=== PATIENT | female | born 1955 | race Caucasian/White ===

== ENCOUNTER 2016-07-29 08:37 | Inpatient (IN) | payer BC ==
--- NOTE | 2016-07-01 15:33 | History and Physical ---
History & Physical HISTORY OF PRESENT ILLNESS: The patient presents as a very pleasant 60-year-old female with severe DJD about her right knee. She presents for a right total knee arthroplasty after failing attempts at conservative management including physical therapy, anti-inflammatories, relative rest, activity modification. She recently had her left TKA done on 05/20/16. She had previous corticosteroid injections, viscosupplementations. Risks and complications of total knee arthroplasty have been discussed with patient. The patient presents for Right total knee arthroplasty. PAST MEDICAL HISTORY: Significant for hypertension, hypercholesterolemia, sleep apnea, using CPAP machine, anxiety, type 2 diabetes, history of kidney stones. ALLERGIES: MACROBID. CURRENT MEDICATIONS: Atorvastatin 40 mg daily, metformin 1000 mg b.i.d., Trulicity 0.75 mg daily, , benazepril 40 mg daily, Paxil 40 mg daily, allopurinol 300 mg daily, vitamin D3. PAST SURGICAL HISTORY: Significant for tonsillectomy sinus surgery lithotripsy Left Total Knee replacement FAMILY HISTORY: Otherwise unremarkable and noncontributory. SOCIAL HISTORY: The patient denies a history of smoking, tobacco use or alcohol consumption. REVIEW OF SYSTEMS: Otherwise unremarkable and noncontributory. See history of present illness for pertinent positives. PHYSICAL EXAMINATION: GENERAL: Reveals a very pleasant 60-year-old female in no acute distress, alert and oriented x3. HEENT: Otherwise atraumatic, normocephalic. HEART: Regular rate and rhythm, pulse 76 bpm. No murmurs are noted. LUNGS: Clear. No rales, rhonchi, or wheezes noted. ABDOMEN: Soft, nontender, nondistended. Bowel sounds are present MUSCULOSKELETAL EXAMINATION: ROM 0/3/110, tender medial and lateral compartments, ligamentously stable, no erythema or warmth. mild effusion. pain with flexion circumduction X-RAYS: She has a varus alignment, subchondral sclerosis, osteophytes noted to Right knee. also s/p Left Total Knee Replacement. IMPRESSION: Right knee degenerative joint disease. PLAN: Total knee arthroplasty, postoperative pain management, DVT prophylaxis. ASA 81mg po bid x 1 month.
[2016-07-16 15:50] VITALS: BMI 42.0
[~2016-07-29] VITALS: Ht 160 cm; Wt 109.1 kg
[2016-07-29] VITALS (9 sets, daily range): BP systolic 111–150; BP diastolic 54–82; PULSE 73–98; TEMP 36.5–36.9; O2SAT 93–100; Ht 160 cm; Wt 109.1 kg
[2016-07-29] MEDS: TRANEXAMIC ACID INJ 1,000 MG in SODIUM CHLORIDE 0.9% 100ML 100 ML IV SCH ×2 (06:30→11:17)
--- NOTE | 2016-07-29 08:12 | History & Physical Bridge Note ---
H&P Re-Evaluation Bridge Note: I have examined the patient, reviewed the History & Physical and in the interval since the performance of the History & Physical I have noted the following changes of clinical significance: No changes noted
[~2016-07-29 08:37] MED LIST: ACETAMINOPHEN 500 MG TAB PO SCH; ACT30 PO; ALLO300T2 PO; AMLO-110 PO; ATOR-24 PO; BENA1TAB19 PO; BUPIVACAINE 0.5 % 5 MG/1 ML PF 10ML VIAL ONE; CEFAZOLIN 2000 MG/60 ML D5W 60 ML IV SCH; CeleBREX 200 MG CAP PO SCH; DEXAMETHASONE 4 MG TAB PO SCH; EXEN1INJ3 INJ; FAMOTIDINE 20 MG TAB PO SCH; GABAPENTIN 300 MG CAP PO SCH; LACTATED RINGER'S 1000ML IV SCH; METF-384 PO; METOCLOPRAMIDE HCL 10 MG TAB PO SCH; PARO1TAB29 PO; ROPIVACAINE 5MG/ML 30 ML 150 MG, BUPIVACAINE/EPINEPHR 0.5% MPF 30 ML, KETOROLAC TROMETH... INFIL SCH
[2016-07-29] MEDS ORDERED: ATROPINE SULFATE 0.1 MG/ML 5ML SYR IV PRN (09:45)
[2016-07-29] MEDS ORDERED: EpHEDrine SULFATE INJ 50 MG/ML AMP IV PRN (09:45)
[2016-07-29] MEDS ORDERED: ONDANSETRON INJ 2 MG/ML 2 ML VIAL IV PRN ×2 (09:45→13:30)
[2016-07-29] MEDS ORDERED: FENTANYL CITRATE INJ 50 MCG/1 ML 2 ML VIAL IV PRN (09:45)
[2016-07-29] MEDS ORDERED: SCOPOLAMINE 1.5 MG TDSY TD ONE ×2 (10:43→10:45)
[2016-07-29] MEDS ORDERED: ONDANSETRON INJ 2 MG/ML 2 ML VIAL ONE (10:52)
[2016-07-29] MEDS ORDERED: MIDAZOLAM HCL 1 MG/ML 2ML VIAL ONE ×3 (10:52→12:15)
[2016-07-29] MEDS ORDERED: FENTANYL CITRATE INJ 50 MCG/1 ML 2 ML VIAL ONE (10:52)
[2016-07-29] MEDS ORDERED: LIDOCAINE HCL 2% 2 ML VIAL (20MG/ML) ONE (10:52)
[2016-07-29] MEDS ORDERED: PROPOFOL IV EMULSION 10 MG/ML 20 ML VIAL IV ONE ×2 (10:52→12:47)
[2016-07-29] MEDS ORDERED: DEXAMETHASONE SOD INJ 4 MG/ML VIAL ONE (10:52)
[2016-07-29] MEDS ORDERED: ORTHO JOINT ANESTHETIC ONE (11:20)
[2016-07-29] MEDS ORDERED: POVIDONE-IODINE OP SOLN 30 ML BTL TOP ONE (12:28)
[2016-07-29] MEDS ORDERED: BACITRACIN 50000 UNIT VIAL IR ONE (12:28)
--- NOTE | 2016-07-29 12:42 | [facility] Post Operative Brief Note ---
Immediate Operative Summary Operative Date Jul 29, 2016. Pre-Operative Diagnosis Right Knee Degenerative Joint Disease Post-Operative Diagnosis Right Knee Degenerative Joint Disease Procedure(s) Performed Right Total Knee Arthroplasty Surgeon Dr. Cory Thomas First Aid Nurse Surgeon(s) Jarrett Thompson PA-C Estimated Blood Loss 5ml Findings severe djd rt knee Specimens A. Right Knee Bone and Tissue Complication(s) None Disposition Recovery Room / PACU
--- NOTE | 2016-07-29 13:00 | HISTORY & PHYSICAL EXAMINATION ---
DATE OF ADMISSION: 07/29/2016 PREOPERATIVE DIAGNOSIS: Severe end-stage degenerative joint disease, right knee. POSTOPERATIVE DIAGNOSIS: Severe end-stage degenerative joint disease, right knee. PROCEDURE: Right total knee arthroplasty utilizing Marrero \T\ Nephew Journey II patient without block knee. Size 3 femur, 2 tibia, 13 spacer, 29 oval patella. SURGEON: Dr. Thomas. PROJECT RESERVOIR ENGINEER: LEELA Nguyen. Please note, Donna was necessary for prepping, draping, retraction, and wound closure of deep fascia, subcutaneous and skin and was necessary for the case. ANESTHESIA: Femoral nerve block, spinal. ESTIMATED BLOOD LOSS: 5 mL. COMPLICATIONS: None. TOURNIQUET TIME: 45 minutes. HISTORY OF PRESENT ILLNESS: The patient presents as a very pleasant 60-year-old white female being seen and evaluated with complaints of severe end-stage DJD about her right knee. She presents for a right total knee arthroplasty. PROCEDURE: The patient was properly prepped and draped in supine position for total knee arthroplasty after identifying the appropriate surgical site. An anterior midline incision was made through the subcutaneous tissues down to the region of the extensor mechanism. A medial parapatellar incision was subsequently made. Meticulous hemostasis was obtained and performed at all times. The patella having been subluxed lateralward, medial and lateral meniscal remnants were excised. The patellar cut was then initially made and was sized to the appropriate size. After subluxing the tibia forward the appropriate meniscal fragments having been removed the distal femur was then cut first utilizing a Marrero \T\ Nephew Journey II without block. The distal femoral cuts and chamfer cuts were all made under direct visualization and the proximal tibial osteotomy cut was also made utilizing Marrero \T\ Nephew Journey II without block and checked with an extramedullary guide. The appropriate trial components on the femur and tibia were placed. Appropriate trial spacers were used to check flexion and extension gaps. With flexion and extension gaps being equal, the components were then subsequently after thorough irrigation and debridement lavage components were then subsequently cemented in the following order: 3 femur, 2 tibia, 13 spacer and 29 oval patella. Exparel was used for intraoperative anesthesia, the medial parapatellar incision was closed utilizing #1 Vicryl, subQ was closed with 2-0 Vicryl, skin was closed with skin clips. A sterile compression dressing was placed. The patient was taken to recovery room in stable condition. Due to the complex nature of the procedure, the entire surgery was performed with the operational assistance of Jarrett Thompson PA-C. The anesthesiologist assistant, under direct supervision, was involved in the actual performance of all aspects of the surgical procedure including hemostasis, tissue retraction and incision, instrument management, patient positioning, and wound closure.
[2016-07-29] MEDS ORDERED: BISACODYL 10 MG SUPP PR PRN (13:30)
[2016-07-29] MEDS ORDERED: MAGNESIUM HYDROXIDE SUSP 30 ML UDC PO PRN (13:30)
[2016-07-29] MEDS ORDERED: SOD PHOSPHATE/SOD BIPHOSPHATE ENEMA 132 ML BTL PR PRN (13:30)
[2016-07-29] MEDS ORDERED: MoRPHine SULFATE 2 MG/ML CARP IV PRN (13:30)
[2016-07-29] MEDS ORDERED: ALUMINUM/MAGNESIUM/SIMETH (MAALOX MAX) 30 ML UDC PO PRN (13:30)
[2016-07-29] MEDS ORDERED: PHARMACY GLYCEMIC MGMT CONSULT PRN (13:35)
[2016-07-29] MEDS ORDERED: MoRPHine SULFATE 10 MG/ML CARP/VIAL IV PRN (13:45)
[2016-07-29] MEDS ORDERED: MoRPHine SULFATE 4 MG/ML 1 ML CARP\\VIAL IV PRN (13:45)
--- NOTE | 2016-07-29 14:08 | DIAGNOSTIC IMAGING REPORT ---
RIGHT KNEE 1 OR 2 VIEWS ROUTINE CLINICAL HISTORY: Postop examination COMPARISON: None. DISCUSSION: There are postsurgical changes of a total right knee arthroplasty and patellar resurfacing. The femoral and tibial components appear well seated. Overlying skin delvin and surgical drains are evident. There is air within the soft tissues consistent with recent surgery. There is no evidence for soft tissue swelling. IMPRESSION: Postsurgical changes of a total right knee arthroplasty. Electronically signed by: Adryan Mathews M.D. 07/29/2016 2:06 PM Dictated Date/Time: 07/29/2016 2:06 PM
[2016-07-29] MEDS ORDERED: GLUCAGON FOR INJ 1 MG VIAL SQ PRN (15:15)
[2016-07-29] MEDS ORDERED: DEXTROSE 50% 50 ML SYR IV PRN (15:15)
[2016-07-29] MEDS ORDERED: GLUCOSE 10 TABS/TUBE PO PRN (15:15)
[2016-07-29] MEDS ORDERED: GLUCOSE 40% GEL 15 GM TUBE PO PRN (15:15)
--- NOTE | 2016-07-29 15:33 | Anesthesiology Progress Note ---
Anesthesia Post Op Note Date & Time Jul 29, 2016 at 15:32 Vital Signs Pain Intensity: 0.0 Vital Signs Past 12 Hours Date Time Temp Pulse Resp B/P Pulse Ox O2 Delivery O2 Flow Rate FiO2 07/29/16 15:25 36.6 86 18 137/70 96 Nasal Cannula 3.0 07/29/16 14:59 36.6 92 20 130/72 93 Nasal Cannula 3.0 07/29/16 14:30 97 Nasal Cannula 2.0 07/29/16 14:30 97 Nasal Cannula 2.0 07/29/16 14:30 36.9 98 18 131/78 97 Nasal Cannula 2.0 07/29/16 14:14 95 21 07/29/16 14:14 95 21 93 07/29/16 14:13 124/72 07/29/16 14:09 95 21 07/29/16 14:09 94 21 93 07/29/16 14:08 127/73 07/29/16 14:04 89 20 07/29/16 14:04 88 20 95 07/29/16 14:03 129/72 07/29/16 13:59 95 19 96 07/29/16 13:59 98 19 07/29/16 13:58 131/75 07/29/16 13:54 95 16 96 07/29/16 13:54 92 16 07/29/16 13:53 131/67 07/29/16 13:49 94 18 07/29/16 13:49 93 18 91 07/29/16 13:48 120/70 07/29/16 13:44 93 20 93 07/29/16 13:44 94 20 07/29/16 13:43 36.8 121/83 07/29/16 13:42 96 19 94 07/29/16 13:42 95 19 07/29/16 13:38 126/71 07/29/16 13:37 93 18 99 07/29/16 13:37 93 18 07/29/16 13:36 93 17 100 07/29/16 13:36 93 17 100 07/29/16 13:36 93 17 07/29/16 13:36 93 17 07/29/16 13:33 126/69 07/29/16 13:33 126/69 07/29/16 13:31 94 21 100 07/29/16 13:31 94 21 100 07/29/16 13:31 93 21 07/29/16 13:31 93 21 07/29/16 13:28 128/69 07/29/16 13:28 128/69 07/29/16 13:26 95 19 100 07/29/16 13:26 95 19 100 07/29/16 13:26 95 19 07/29/16 13:26 95 19 07/29/16 13:23 128/70 07/29/16 13:23 128/70 07/29/16 13:21 102 27 07/29/16 13:21 101 27 98 07/29/16 13:21 36.8 105 17 127/64 99 Mask 10 07/29/16 13:21 102 27 07/29/16 13:21 101 27 98 07/29/16 09:50 36.8 84 22 150/82 100 Room Air Notes Mental Status: alert / awake / arousable, participated in evaluation Pt Amnestic to Procedure: Yes Nausea / Vomiting: adequately controlled Pain: adequately controlled Airway Patency, RR, SpO2: stable & adequate BP & HR: stable & adequate Hydration State: stable & adequate Neuraxial Anesthesia: was administered, sensory block is resolving Anesthetic Complications: no major complications apparent
[2016-07-29] MEDS: SODIUM CHLORIDE 0.9% 1000ML 1,000 ML IV SCH ×2 (15:42→23:37)
[2016-07-29] MEDS ORDERED: NURSING VERBAL MED ORDER ONE (15:45)
[2016-07-29] MEDS: INSULIN ASPART 100 UNITS/ML 3 ML PEN SC SCH ×2 (18:15→21:51)
--- NOTE | 2016-07-29 18:18 | Pharmacy Progress Note ---
Glycemic Control Intl Consult Date of Service Jul 29, 2016. Scope Glycemic Pharmacist consulted by Jarrett Thompson PAC on 07/29/2016 for glycemic control and to write orders per [facility] inpatient glycemic control protocol Objective Weight (Kilograms): 109.090 Accuchecks BSG (last 24hrs): Test 07/29/16 09:27 07/29/16 13:26 Bedside Glucose 110 mg/dl (70-90) 133 mg/dl (70-90) HbA1c 9.0% on 03/28/16 Recent Pertinent Medications Outpatient Anti-diabetic Regimen: * Bydureon 2 mg SQ weekly, metformin 1000 mg BID, Actos 30 mg daily * A1c = 9.0 % 03/28/16 Risk Factors for Insulin Resistance: * Steroids: dexamethasone 8 mg preop, dexamethasone 4 mg intra-op * Infection: * Pressors: * IVF: NSS @ 100 ml/hr * Recent Surgery: TKA * Diet: type 2 diabetes * Mechanical Ventilation: Assessment & Plan ASSESSMENT: * ADA & AACE recommend a goal blood sugar range 140-180 mg/dl for the majority of critically ill & non-critically ill patients. However, more stringent targets may be selected in individual cases. PLAN FOR INPATIENT GLYCEMIC CONTROL: * Correctional Insulin with NOVOLOG / REGULAR per scale ACHS * Goal Range: Low 100 mg/dL - High 140 mg/dL * Correction Factor: 25 mg/dL/unit * Nutritional / Prandial insulin per carb ratio of 1 unit per 9 grams CHO consumed * Please note that the plan above was derived based on current level of insulin resistance and hospital stress. These recommendations are appropriate for inpatient admission only. Plan of care upon discharge will need to be reassessed to avoid potential outpatient hypo/hyperglycemia. Thank you.
[2016-07-29] MEDS: FERROUS GLUCONATE 324 MG TAB PO SCH (18:57)
[2016-07-29] MEDS: CEFAZOLIN IV 2,000 MG in DEXTROSE 5% 50ML 50 ML IV SCH (19:45)
[2016-07-29] MEDS: DOCUSATE SODIUM 100 MG CAP PO SCH (21:49)
[2016-07-29] MEDS: SENNA 8.6 MG TAB PO SCH (21:49)
[2016-07-29] MEDS: OXYCODONE HCL 10 MG TABCR (OXYCONTIN) PO SCH (21:49)
[2016-07-29] MEDS: ASPIRIN 81 MG ECTAB PO SCH (21:49)
[2016-07-29] MEDS: ACETAMINOPHEN 500 MG TAB PO SCH (21:50)
[2016-07-30] VITALS (7 sets, daily range): BP systolic 108–132; BP diastolic 63–67; PULSE 65–94; TEMP 36.2–37.1; O2SAT 96–98
[2016-07-30] MEDS: CEFAZOLIN IV 2,000 MG in DEXTROSE 5% 50ML 50 ML IV SCH (04:16)
[2016-07-30 05:54] LABS: HEMATOCRIT 31.2 % (37-47); MEAN CELL VOLUME 86.2 fL (80-100); MEAN CORPUSCULAR HEMOGLOBIN 28.5 pg (25-34); MEAN PLATELET VOLUME 10.1 fL (7.4-10.4); PLATELET COUNT 218 K/uL (130-400); RED BLOOD COUNT 3.62 M/uL (4.2-5.4); WHITE BLOOD COUNT 7.66 K/uL (4.8-10.8)
[2016-07-30] MEDS: ACETAMINOPHEN 500 MG TAB PO SCH ×3 (05:57→22:13)
[2016-07-30 06:06] LABS: PROTHROMBIN TIME (PATIENT) 10.7 SECONDS (9.0-12.0)
[2016-07-30 06:23] LABS: CALCIUM 8.6 mg/dl (8.5-10.1); CREATININE 0.75 mg/dl (0.60-1.20); POTASSIUM 4.3 mmol/L (3.5-5.1)
--- NOTE | 2016-07-30 07:21 | Orthopedic Progress Note ---
Orthopedic Progress Note Date of Service Jul 30, 2016. Subjective Post OP Day: 1 Reports: feeling well, pain controlled w PO medications, Denies: SOB, calf pain , chest pain, complaints, light headedness, nausea / vomiting Objective calves soft nontender, N/V intact, capillary refill less than 2 sec., dressing C /D/I, A&O x3, toes mobile, hemovac drainage (125cc/8 hours) Date Time Temp Pulse Resp B/P Pulse Ox O2 Delivery O2 Flow Rate FiO2 07/30/16 04:00 36.7 85 18 131/66 96 CPAP 07/29/16 23:15 36.8 73 18 118/65 96 CPAP 07/29/16 19:35 Room Air 07/29/16 19:11 36.5 83 18 111/54 93 Room Air 07/29/16 17:20 36.8 90 18 119/66 95 Room Air 07/29/16 16:55 97 Room Air 07/29/16 16:26 36.7 95 18 132/68 97 Nasal Cannula 3.0 07/29/16 15:25 36.6 86 18 137/70 96 Nasal Cannula 3.0 07/29/16 14:59 36.6 92 20 130/72 93 Nasal Cannula 3.0 07/29/16 14:30 97 Nasal Cannula 2.0 07/29/16 14:30 97 Nasal Cannula 2.0 07/29/16 14:30 36.9 98 18 131/78 97 Nasal Cannula 2.0 07/29/16 14:14 95 21 07/29/16 14:14 95 21 93 07/29/16 14:13 124/72 07/29/16 14:09 95 21 07/29/16 14:09 94 21 93 07/29/16 14:08 127/73 07/29/16 14:04 89 20 07/29/16 14:04 88 20 95 07/29/16 14:03 129/72 07/29/16 13:59 95 19 96 07/29/16 13:59 98 19 07/29/16 13:58 131/75 07/29/16 13:54 95 16 96 07/29/16 13:54 92 16 07/29/16 13:53 131/67 07/29/16 13:49 94 18 07/29/16 13:49 93 18 91 07/29/16 13:48 120/70 07/29/16 13:44 93 20 93 07/29/16 13:44 94 20 07/29/16 13:43 36.8 121/83 07/29/16 13:42 96 19 94 07/29/16 13:42 95 19 07/29/16 13:38 126/71 07/29/16 13:37 93 18 99 07/29/16 13:37 93 18 07/29/16 13:36 93 17 100 07/29/16 13:36 93 17 100 07/29/16 13:36 93 17 07/29/16 13:36 93 17 07/29/16 13:33 126/69 07/29/16 13:33 126/69 07/29/16 13:31 94 21 100 07/29/16 13:31 94 21 100 07/29/16 13:31 93 21 07/29/16 13:31 93 21 07/29/16 13:28 128/69 07/29/16 13:28 128/69 07/29/16 13:26 95 19 100 07/29/16 13:26 95 19 100 07/29/16 13:26 95 19 07/29/16 13:26 95 19 07/29/16 13:23 128/70 07/29/16 13:23 128/70 07/29/16 13:21 102 27 07/29/16 13:21 101 27 98 07/29/16 13:21 36.8 105 17 127/64 99 Mask 10 07/29/16 13:21 102 27 07/29/16 13:21 101 27 98 07/29/16 09:50 36.8 84 22 150/82 100 Room Air Laboratory Results 24 Hours: Test 07/30/16 05:20 Hematocrit 31.2 % Hemoglobin 10.3 g/dL Prothromb Time International Ratio 1.0 Prothrombin Time 10.7 SECONDS Assessment & Plan Assessment: POD #1 s/p Right TKA -PT/OT -TEDs/SCDs/ASA -plan for d/c home with HHPT when stable hypertension hypercholesterolemia sleep apnea, using CPAP machine, anxiety type 2 diabetes- pharm consult for SSI history of kidney stones Discharge Planning Discharge Planning: home with home health DVT Prophylaxis: TEDs, SCDs, ASA Therapy: Physical Therapy
[2016-07-30] MEDS: MULTIVITAMIN TAB PO SCH (08:47)
[2016-07-30] MEDS: ENALAPRIL MALEATE 10 MG TAB PO SCH (08:48)
[2016-07-30] MEDS: PANTOprazole SOD 40 MG TAB PO SCH (08:48)
[2016-07-30] MEDS: ATORVASTATIN 40 MG TAB PO SCH (08:49)
[2016-07-30] MEDS: PAROXETINE 20 MG TAB PO SCH (08:49)
[2016-07-30] MEDS: FERROUS GLUCONATE 324 MG TAB PO SCH ×3 (08:49→18:34)
[2016-07-30] MEDS: ASPIRIN 81 MG ECTAB PO SCH ×2 (08:49→20:45)
[2016-07-30] MEDS: DOCUSATE SODIUM 100 MG CAP PO SCH ×2 (08:49→20:45)
[2016-07-30] MEDS: OXYCODONE HCL 10 MG TABCR (OXYCONTIN) PO SCH ×2 (08:55→20:45)
[2016-07-30] MEDS: OXYCODONE HCL IR 5 MG TAB (IMMEDIATE RELEASE) PO PRN ×2 (08:56→22:16)
[2016-07-30] MEDS: INSULIN ASPART 100 UNITS/ML 3 ML PEN SC SCH ×4 (08:57→20:56)
[2016-07-30] MEDS ORDERED: AMLODIPINE BESYLATE 5 MG TAB PO SCH (09:00)
[2016-07-30] MEDS: SODIUM CHLORIDE 0.9% 1000ML 1,000 ML IV SCH (09:46)
--- NOTE | 2016-07-30 13:21 | Discharge Instructions ---
Discharge Instructions Admission Reason for Admission: Right Knee Osteoarthritis Discharge Discharge Diagnosis / Problem: Right Total Knee Replacement Discharge Goals Goal(s): Decrease discomfort, Improve function, Increase independence Activity Recommendations Activity Limitations: as noted below Weightbearing Status: Right weightbearing (as tolerated) . Instructions / Follow-Up Instructions / Follow-Up ACTIVITY RECOMMENDATIONS: SELF CARE INSTRUCTIONS AFTER TOTAL KNEE REPLACEMENT A. You may need to continue a physical therapy program after discharge from the hospital. There are several options available to you. Your doctor will assist you in selecting the best one for you. 1. An out-patient facility 2 to 3 times a week for therapy or home therapy. 2. Continue working on all exercises taught to you in the hospital. Your goals should be to increase bending of your knee to 90 degrees and beyond and to fully straighten your knee. B. You may progress at your own pace from walking with a walker or crutches to a cane; then to no assistive devices. C. Make walking a part of your daily routine. Be up as much as comfortable with rest periods throughout the day. Rest with leg elevation is very important. Use the ice wrap frequently for the first 3-4 weeks. D. There are no restrictions on activities. You may ride in a car, shop, participate in superintendent landfill operations and all social activities. E. Wear the long elastic stockings (KAMRAN hose) 20 hours a day for 2 weeks after surgery. They can be removed several times a day for laundering and for a bath. F. You may shower, no tub baths until cleared by your doctor. SPECIAL CARE INSTRUCTIONS: VERY IMPORTANT TO READ AND REVIEW A. There are a few signs you need to watch for after you are home. Call [facility] if you notice any of the followin. Increased severe knee pain. Some pain is expected especially when you exercise. 2. Increased swelling in your leg or knee; pain or swelling of the calf muscle in either lower leg. 3. Any fluid drainage from the incision. 4. Shortness of breath or chest pain. B. Please call [facility] [place] at if you have any concerns or questions about your operation or recovery. The doctor or his nurse will return your call promptly. C. You must take antibiotics before dental work, bladder, bowel or other surgery. Your doctor will provide you with a permanent care to carry describing this precaution. IMPORTANT: * REMEMBER TO TAKE ASPIRIN, 81 MG, TWICE DAILY FOR 4 WEEKS UNLESS OTHERWISE DIRECTED. THIS IS YOUR BLOOD THINNER. * HIGH RISK PATIENTS MAY BE PRESCRIBED A STRONGER BLOOD THINNER. THIS WILL BE PROVIDED AT DISCHARGE. * CALL IF INCREASED PAIN, REDNESS, DRAINAGE OR FEVER GREATER THAT 101. * WEAR KAMRAN HOSE 20 HOURS PER DAY FOR 2 WEEKS. * YOU MAY HAVE A LARGE BAND-AID LIKE DRESSING (SILVERON). THIS WILL REMAIN ON YOUR INCISION FOR 7 DAYS, THEN CAN BE REMOVED. IF INCISION IS LEAKING THROUGH DRESSING, CALL THE OFFICE . DERMABOND Prineo- This is a mesh tape dressing that is covered with glue. It should remain in place until the incision is properly healed, usually 10-14 days. This dressing is designed to naturally slough off. You may trim the excess mesh tape as it peels off. Incision may be briefly wet in a shower. Dry immediately by blotting with a clean, dry towel. Do not bath or swim until instructed by your doctor. Do not scratch, rub, or pick at the dressing. Do not apply any topical ointments or lotions until dressing is completely removed and/or instructed by your doctor. There may be a small piece of suture material at one end of your incision. Do not pull or trim this. If it is bothersome or catching on clothing, you may cover it with a band-aid. FOLLOW UP VISIT: If appointment is not already scheduled: Please call [facility] to make a follow-up appointment for 2 weeks after your surgery at . Current Hospital Diet Patient's current hospital diet: Diabetes Type 2 Diet Discharge Diet Recommended Diet: Regular Diet Procedures Procedures Performed: Right Total Knee Arthroplasty Pending Studies Studies pending at discharge: no Medical Emergencies . Who to Call and When: Medical Emergencies: If at any time you feel your situation is an emergency, please call [phone] immediately. . Non-Emergent Contact Non-Emergency issues call your: Primary Care Provider, Surgeon . "Provider Documentation" section prepared by Jarrett Thompson. VTE Core Measure Inpt VTE Proph given/why not?: Other Anticoagulation (ASA 81mg po bid x 1 month ), T.E.D. Stockings, SCD's
[2016-07-30] MEDS: SENNA 8.6 MG TAB PO SCH (20:45)
[2016-07-31] MEDS: ACETAMINOPHEN 500 MG TAB PO SCH (05:32)
[2016-07-31 06:31] VITALS: BP 131/71; PULSE 86; TEMP 36.8; O2SAT 95
[2016-07-31] MEDS: OXYCODONE HCL IR 5 MG TAB (IMMEDIATE RELEASE) PO PRN (06:49)
[2016-07-31] MEDS: DOCUSATE SODIUM 100 MG CAP PO SCH (07:26)
[2016-07-31] MEDS: ATORVASTATIN 40 MG TAB PO SCH (07:26)
[2016-07-31] MEDS: ENALAPRIL MALEATE 10 MG TAB PO SCH (07:27)
[2016-07-31] MEDS: ASPIRIN 81 MG ECTAB PO SCH (07:27)
[2016-07-31] MEDS: MULTIVITAMIN TAB PO SCH (07:27)
[2016-07-31] MEDS: PAROXETINE 20 MG TAB PO SCH (07:27)
[2016-07-31] MEDS: FERROUS GLUCONATE 324 MG TAB PO SCH (07:28)
[2016-07-31] MEDS: PANTOprazole SOD 40 MG TAB PO SCH (07:28)
[2016-07-31] MEDS: OXYCODONE HCL 10 MG TABCR (OXYCONTIN) PO SCH (07:33)
--- NOTE | 2016-07-31 07:39 | Orthopedic Progress Note ---
Orthopedic Progress Note Date of Service Jul 31, 2016. Subjective Post OP Day: 2 Reports: feeling well, pain controlled w PO medications, Denies: SOB, calf pain , chest pain, complaints, light headedness, nausea / vomiting Objective calves soft nontender, N/V intact, capillary refill less than 2 sec., dressing C /D/I (silverlon intact), A&O x3, toes mobile Date Time Temp Pulse Resp B/P Pulse Ox O2 Delivery O2 Flow Rate FiO2 07/31/16 06:31 36.8 86 18 131/71 95 CPAP 07/31/16 00:15 Room Air 07/30/16 23:30 37.1 82 18 132/63 96 CPAP 07/30/16 15:32 36.8 94 18 123/63 97 Room Air 07/30/16 15:30 97 Room Air 07/30/16 12:20 37.0 65 17 119/67 98 Room Air 07/30/16 08:31 97 Room Air 07/30/16 08:23 36.2 72 17 108/66 97 Room Air Assessment & Plan Assessment: POD #2 s/p Right TKA -PT/OT -TEDs/SCDs/ASA -plan for d/c home with HHPT when stable, likely after PT today hypertension hypercholesterolemia sleep apnea, using CPAP machine, anxiety type 2 diabetes- pharm consult for SSI history of kidney stones Discharge Planning Discharge Planning: home with home health DVT Prophylaxis: TEDs, SCDs, ASA Therapy: Physical Therapy
[2016-07-31] MEDS: INSULIN ASPART 100 UNITS/ML 3 ML PEN SC SCH (07:40)
[2016-07-31] MEDS ORDERED: RXC5 PO (07:42)
[2016-07-31] MEDS ORDERED: ACET-1138 PO (07:42)
[2016-07-31] MEDS ORDERED: OXYSR10 PO (07:42)
[2016-07-31] MEDS ORDERED: ONDA8TAB6 PO (07:42)
[2016-07-31] MEDS ORDERED: CLC100 PO (07:42)
[2016-07-31] MEDS ORDERED: ASPEC81 PO (07:42)
--- NOTE | 2016-07-31 07:45 | Discharge Summary ---
Orthopedic Discharge Summary Admission Date/Reason Jul 29, 2016 at 09:30 Right Knee Osteoarthritis. Discharge Date/Disposition Jul 31, 2016 Home with services Diagnosis Principal Diagnosis: Right Knee DJD Procedure(s) Performed Right Total Knee Replacement Consultations Pharmacy consult for Diabetes management Medication Reconciliation New Medications: Ondansetron Hcl (Zofran) 8 Mg Tab 8 MG PO Q8 PRN for Nausea, #20 TAB Acetaminophen (Tylenol Extra Strength) 500 Mg Tab 1000 MG PO Q8H, #126 TAB Aspirin (Aspirin EC Low Dose) 81 Mg Ectab 81 MG PO BID for 30 Days Docusate Sodium (Docusate Sodium) 100 Mg Cap 100 MG PO BID for 15 Days, #30 CAP Oxycodone HCl (Oxycontin) 10 Mg Tabcr 10 MG PO Q12, #20 Oxycodone HCl (Oxycodone HCl) 5 Mg Tab 5-10 MG PO Q4H PRN for Pain, #60 TAB Continued Medications: Allopurinol (Zyloprim) 300 Mg Tab 300 MG PO QAM, TAB TAKE AM SURGERY SIP WATER Amlodipine (Norvasc) 5 Mg Tab 5 MG PO QAM, TAB TAKE AM SURGERY SIP WATER Atorvastatin (Lipitor) 40 Mg Tab 40 MG PO QAM, TAB TAKE AM SURGERY SIP WATER Benazepril (Lotensin) 40 Mg Tab 40 MG PO QAM, TAB HOLD AM SURGERY Exenatide (Bydureon) 2 Mg Inj 2 MG INJ WEEKLY TAKE USUAL-SUNDAYS Metformin Hcl (Glucophage) 1,000 Mg Tab 1000 MG PO BID, TAB HOLD 48 HRS BEFORE SURGERY Paroxetine (Paxil) 40 Mg Tab 40 MG PO QAM, TAB TAKE AM SURGERY SIP WATER Pioglitazone (Actos) 30 Mg Tab 1 TAB PO QAM, TAB 3 Refills HOLD AM SURGERY Admission Physical Exam As per Admitting History & Physical. Hospital Course Patient was a same day admission after undergoing a successful Right TKA. she tolerated the procedure well. Post-operatively, her activity was progressed and well tolerated. Please refer to daily progress notes and PT notes for complete details. After exam on 07/31/16, patient felt to be stable for discharge home with home health physical therapy. Patient will f/u in the office in 2 weeks for further evaluation including x-rays and incision check, sooner if having any issues or concerns. Below are pertinent labs/studies during their hospital stay: Last Vital Signs Documentation Date Time Temp Pulse Resp B/P Pulse Ox O2 Delivery O2 Flow Rate FiO2 07/31/16 06:31 36.8 86 18 131/71 95 CPAP 07/29/16 16:26 3.0 Last Resulted CBC 07/30/16 05:20 Last Resulted BMP 07/30/16 05:20 Discharge Instructions ACTIVITY RECOMMENDATIONS: SELF CARE INSTRUCTIONS AFTER TOTAL KNEE REPLACEMENT A. You may need to continue a physical therapy program after discharge from the hospital. There are several options available to you. Your doctor will assist you in selecting the best one for you. 1. An out-patient facility 2 to 3 times a week for therapy or home therapy. 2. Continue working on all exercises taught to you in the hospital. Your goals should be to increase bending of your knee to 90 degrees and beyond and to fully straighten your knee. B. You may progress at your own pace from walking with a walker or crutches to a cane; then to no assistive devices. C. Make walking a part of your daily routine. Be up as much as comfortable with rest periods throughout the day. Rest with leg elevation is very important. Use the ice wrap frequently for the first 3-4 weeks. D. There are no restrictions on activities. You may ride in a car, shop, participate in technical sales director and all social activities. E. Wear the long elastic stockings (KAMRAN hose) 20 hours a day for 2 weeks after surgery. They can be removed several times a day for laundering and for a bath. F. You may shower, no tub baths until cleared by your doctor. SPECIAL CARE INSTRUCTIONS: VERY IMPORTANT TO READ AND REVIEW A. There are a few signs you need to watch for after you are home. Call [facility] if you notice any of the followin. Increased severe knee pain. Some pain is expected especially when you exercise. 2. Increased swelling in your leg or knee; pain or swelling of the calf muscle in either lower leg. 3. Any fluid drainage from the incision. 4. Shortness of breath or chest pain. B. Please call [facility] at if you have any concerns or questions about your operation or recovery. The doctor or his nurse will return your call promptly. C. You must take antibiotics before dental work, bladder, bowel or other surgery. Your doctor will provide you with a permanent care to carry describing this precaution. IMPORTANT: * REMEMBER TO TAKE ASPIRIN, 81 MG, TWICE DAILY FOR 4 WEEKS UNLESS OTHERWISE DIRECTED. THIS IS YOUR BLOOD THINNER. * HIGH RISK PATIENTS MAY BE PRESCRIBED A STRONGER BLOOD THINNER. THIS WILL BE PROVIDED AT DISCHARGE. * CALL IF INCREASED PAIN, REDNESS, DRAINAGE OR FEVER GREATER THAT 101. * WEAR KAMRAN HOSE 20 HOURS PER DAY FOR 2 WEEKS. * YOU MAY HAVE A LARGE BAND-AID LIKE DRESSING (SILVERON). THIS WILL REMAIN ON YOUR INCISION FOR 7 DAYS, THEN CAN BE REMOVED. IF INCISION IS LEAKING THROUGH DRESSING, CALL THE OFFICE . FOLLOW UP VISIT: If appointment is not already scheduled: Please call [facility] to make a follow-up appointment for 2 weeks after your surgery at .
[2016-07-31 09:41] VITALS: BP 131/71; PULSE 86; TEMP 36.8; O2SAT 95
--- NOTE | 2016-08-19 12:54 | OPERATIVE REPORT ---
DATE OF OPERATION: 07/29/2016 PREOPERATIVE DIAGNOSIS: Severe end-stage degenerative joint disease, right knee. POSTOPERATIVE DIAGNOSIS: Severe end-stage degenerative joint disease, right knee. PROCEDURE: Right total knee arthroplasty utilizing Marrero \T\ Nephew Journey II, patient without block knee, and size 3 femur, 2 tibia, 13 spacer, 29 oval patella. SURGEON: Dr. Thomas. SOCCER BALL ASSEMBLER: Jarrett Thompson PA-C, who was necessary for prepping, draping, retraction, wound closure of deep fascia, subcutaneous skin and was necessary for the case. ANESTHESIA: Femoral nerve block, spinal. ESTIMATED BLOOD LOSS: 5 mL. COMPLICATIONS: None. TOURNIQUET TIME: 45 minutes. HISTORY OF PRESENT ILLNESS: The patient is a very pleasant 60-year-old white female who presents being seen and evaluated with complaints of severe endstage degenerative joint disease. She has failed attempts at conservative management. She presents for total knee arthroplasty after failing attempts at conservative management including viscosupplementation, corticosteroid injections, anti-inflammatories, relative rest, activity modification. OPERATION AND FINDINGS: PROCEDURE: The patient was properly prepped and draped in supine position for total knee arthroplasty after identifying the appropriate surgical site. An anterior midline incision was made through the subcutaneous tissues down to the region of the extensor mechanism. A medial parapatellar incision was subsequently made. Meticulous hemostasis was obtained and performed at all times. The patella having been subluxed lateralward, medial and lateral meniscal remnants were excised. The patellar cut was then initially made and was sized to the appropriate size. After subluxing the tibia forward the appropriate meniscal fragments having been removed the distal femur was then cut first utilizing a Marrero \T\ Nephew nonblock Journey II. The distal femoral cuts and chamfer cuts were all made under direct visualization and the proximal tibial osteotomy cut was also made utilizing Marrero \T\ Nephew nonblock Journey II and checked with an extramedullary guide. The appropriate trial components on the femur and tibia were placed. Appropriate trial spacers were used to check flexion and extension gaps. With flexion and extension gaps being equal, the components were then subsequently after thorough irrigation and debridement lavage components were then subsequently cemented in the following order: Size 3 femur, 2 tibia, 13 spacer and 29 oval patella. Exparel was used for intraoperative anesthesia, the medial parapatellar incision was closed utilizing #1 Vicryl, subQ was closed with 2-0 Vicryl, skin was closed with skin clips. A sterile compression dressing was placed. The patient was taken to recovery room in stable condition. Due to the complex nature of the procedure, the entire surgery was performed with the operational assistance of Jarrett Thompson PA-C. The clinical project assistant, under direct supervision, was involved in the actual performance of all aspects of the surgical procedure including hemostasis, tissue retraction and incision, instrument management, patient positioning, and wound closure. I attest to the content of the Intraoperative Record and any orders documented therein. Any exceptio ns are noted below.
== END 2016-07-31 10:40 | disposition home health service (06) | DRG 470 ==
LOC: ENRESERVDT → ENRESERVTM → C.ACU 08:37 → C.3E 09:30
PROVIDERS: ADMIT Orthopaedic Surgery; ATTEND Orthopaedic Surgery
PROC: 0SRC0J9 Replacement of Right Knee Joint with Synthetic Substitute, Cemented, Open Approach (ICD-10-PCS; principal; 2016-07-29 11:45)
DX: M17.11 Unilateral primary osteoarthritis, right knee (principal); Z68.41 Body mass index [BMI] 40.0-44.9, adult; M21.161 Varus deformity, not elsewhere classified, right knee; I12.9 Hypertensive chronic kidney disease with stage 1 through stage 4 chronic kidney disease, or unspecified chronic kidney disease; N18.9 Chronic kidney disease, unspecified; E11.22 Type 2 diabetes mellitus with diabetic chronic kidney disease; E78.00 Pure hypercholesterolemia, unspecified; G47.30 Sleep apnea, unspecified; F41.9 Anxiety disorder, unspecified; E66.01 Morbid (severe) obesity due to excess calories; Z99.89 Dependence on other enabling machines and devices; Z96.652 Presence of left artificial knee joint; Z79.84 Long term (current) use of oral hypoglycemic drugs; Z79.899 Other long term (current) drug therapy